=== PATIENT | female | born 1930 | race Two or more races ===

== ENCOUNTER 2017-12-10 12:26 | Emergency (ER) | payer OTHER ==
[~2017-12-10] VITALS: Ht 154.9 cm; Wt 72.6 kg
[2017-12-10] MEDS ORDERED: SODIUM CHLORIDE 0.9% 1,000 ML IV ONE (13:03)
[2017-12-10 13:10] LABS: Basophils # (auto) 0 uL; Basophils % (auto) 0.3 % (0.0-2.0); Eosinophils # (auto) 0.1 uL; Eosinophils % (auto) 0.8 % (0.0-7.0); Hematocrit 47.9 % (36.0-46.0); Hemoglobin 16.2 g/dL (12.2-16.2); Lymphocytes % (auto) 14.1 % (10.0-50.0); Mean Corpuscular Hemoglobin 33.8 pg (28.0-32.0); Mean Corpuscular Hgb Conc. 33.7 g/dL (32.0-36.0); Mean Corpuscular Volume 100.1 fL (80.0-100.0); Monocytes # (auto) 0.7 uL; Neutrophils # (auto) 5.5 uL; Neutrophils % (auto) 74.8 % (37.0-80.0); Platelet Count (auto) 158 10^3/uL (140-450); Red Blood Cells 4.79 10^6/uL (4.0-5.20); Red Cell Distribution Width 13.8 % (11.8-14.3); White Blood Cell 7.3 10^3/uL (4.4-10.8)
[2017-12-10 13:27] LABS: Albumin 3.7 g/dL (3.4-5.0); BUN/Creatinine Ratio 13.1; Bilirubin, Total 0.6 mg/dL (0.2-1.0); Calcium 9.1 mg/dL (8.5-10.1); Total Protein 7.6 g/dL (6.4-8.2)
[2017-12-10 13:48] LABS: Magnesium 2.6 mg/dL (1.6-2.6)
[2017-12-10 13:51] LABS: Partial Thromboplastin Time 26.7 sec (22.64-33.71); Prothrombin Time 10.9 sec (9.37-12.3)
[2017-12-10 15:00] VITALS: BP 121/51
== END 2017-12-10 16:39 | disposition left against medical advice (07) ==
LOC: ER 12:26 → EDBD 12:26 → ER 16:39
DX: R55 Syncope and collapse (principal); N28.9 Disorder of kidney and ureter, unspecified; E03.9 Hypothyroidism, unspecified
CPT/HCPCS: 36415; 70450; 71046; 80053; 83735; 84443; 84484; 85025; 85379; 85610; 85730; 93005; 94761; 96360; 99285; J7030

== ENCOUNTER 2017-12-12 14:07 | Emergency (ER) | payer OTHER ==
[~2017-12-12] VITALS: Ht 149.9 cm; Wt 54.4 kg
[2017-12-12 18:32] VITALS: BP 132/61
== END 2017-12-12 18:18 | disposition home or self-care (01) ==
LOC: ER 14:07
DX: R55 Syncope and collapse (principal); E78.5 Hyperlipidemia, unspecified; Z90.710 Acquired absence of both cervix and uterus; Z90.49 Acquired absence of other specified parts of digestive tract
CPT/HCPCS: 93005